=== PATIENT | male | born 1950 | race American Indian/Alaskan Native ===

== ENCOUNTER 2021-05-31 09:24 | Outpatient (CLI) | payer MEDICARE, OTHER ==
--- NOTE | 2021-05-31 10:48 | Cat Scan Report ---
CT ABDOMEN AND PELVIS WITHOUT CONTRAST HISTORY: PROSTATE CANCER COMPARISON: None. TECHNIQUE: Axial CT images were obtained through the abdomen and pelvis without IV contrast. Sagittal and coronal reformatted images. All CT scans at this location are performed using CT dose reduction for ALARA by means of automated exposure control. FINDINGS: CT ABDOMEN: Lung Bases: Clear. Liver: No significant abnormality. Biliary: No significant abnormality. Spleen: No significant abnormality. Unenlarged. Pancreas: No significant abnormality. Adrenals: No significant abnormality. Kidneys: No significant abnormality. Lymphatics: There is a solitary borderline to mildly enlarged left inguinal lymph node measuring 1.1 cm in short axis Vasculature: No significant abnormality. Bowel/Peritoneum: No significant abnormality. No free air. No free fluid. CT PELVIS: : No significant abnormality. Osseous Structures: No significant abnormality. Additional Findings: None IMPRESSION: Solitary mildly enlarged left inguinal lymph node as described above. This may be reactive in nature although metastatic disease is difficult to exclude. No other enlarged lymph nodes. No visceral mass or bone lesion. Signer Name: Lemuel Bullock Jr, MD Signed: 05/31/2021 10:43 AM Workstation Name: [id number]
--- NOTE | 2021-05-31 14:09 | Nuclear Medicine Report ---
NUCLEAR MEDICINE BONE SCAN, WHOLE BODY INDICATION / CLINICAL INFORMATION: C61. Prostate cancer TECHNIQUE: mCi of Tc-99m MDP were injected IV. Images were obtained of the whole body. COMPARISON: CT abdomen pelvis 05/31/2021 FINDINGS: BONES: No osseous lesion or other abnormality. JOINTS: Degenerative activity both knees and ankles. SOFT TISSUES: No significant abnormality. KIDNEYS: No significant abnormality. ADDITIONAL FINDINGS: None. IMPRESSION: 1. No scintigraphic evidence for skeletal metastases Signer Name: Irvin Cabral MD Signed: 05/31/2021 2:05 PM Workstation Name: [id number]
== END 2021-05-31 09:25 | disposition home or self-care (01) ==
LOC: NM 09:24
PROVIDERS: ATTEND Urology
DX: C61 Malignant neoplasm of prostate (principal); M17.0 Bilateral primary osteoarthritis of knee; M19.072 Primary osteoarthritis, left ankle and foot; M19.071 Primary osteoarthritis, right ankle and foot; R59.9 Enlarged lymph nodes, unspecified
CPT/HCPCS: 74176; 78306; A9503

== ENCOUNTER 2021-09-10 05:48 | Observation (INO) | payer MEDICARE, OTHER ==
--- NOTE | 2021-09-04 10:47 | Anesthesia Consultation ---
Anesthesia Consult and Med Hx Date of service: 09/04/21 - Airway Anesthetic Teeth Evaluation: Dentures (upper and lower) ROM Head & Neck: Adequate Mental/Hyoid Distance: Adequate Mallampati Class: Class II Intubation Access Assessment: Probably Good - Pre-Operative Health Status ASA Pre-Surgery Classification: ASA2 Proposed Anesthetic Plan: General Nerve Block: TAP - Pulmonary Hx Smoking: Yes (STOPPED X 30 YRS) COPD: Yes (MILD- INHALER PRN- PT STATES RARE USE) Hx Sleep Apnea: No ([place] PRE SCREEN HIGH RISK) - Cardiovascular System Hx Hypertension: Yes (X 10-15 YRS) Hx Heart Murmur: Yes (CAUSES NO PROBLEMS) - Central Nervous System Hx Psychiatric Problems: No - Hematic Hx Anemia: No - Other Systems Hx Substance Use: Yes (OCC MARIJUANA) Hx Cancer: Yes (prostate)
[2021-09-04 10:52] LABS: Mean Corpuscular HGB Conc 36 % (32-34); Mean Corpuscular Volume 95 fl (84-94); Platelet Count 303 K/mm3 (140-440); Red Blood Count 4.48 M/mm3 (3.65-5.03); Red Cell Distribution Width 12.8 % (13.2-15.2)
[2021-09-04 10:53] LABS: Hematocrit 42.6 % (35.5-45.6); Hemoglobin 15.2 gm/dl (11.8-15.2)
[2021-09-04 11:12] LABS: Alanine Aminotransferase 9 units/L (7-56); Albumin 4.7 g/dL (3.9-5); BUN/Creatinine Ratio 11; Blood Urea Nitrogen 10 mg/dL (9-20); Calcium 9.4 mg/dL (8.4-10.2); Hemolysis Index 11
[2021-09-10] MEDS ORDERED: ACETAMINOPHEN 325 MG TAB PO SCH (06:00)
[2021-09-10] MEDS ORDERED: fentaNYL 100 MCG/2 ML INJ IV SCH (06:00)
[2021-09-10] MEDS ORDERED: LACTATED RINGERS 1,000 ML IV SCH (07:00)
[2021-09-10] MEDS ORDERED: GABAPENTIN 500 MG/10 ML ORAL LIQD PO NR (07:00)
[2021-09-10] MEDS ORDERED: FAMOTIDINE 20 MG/2 ML INJ IV NR (07:00)
[2021-09-10] MEDS ORDERED: BUPIVACAINE/PF (0.5%) 5 MG/1 ML 10 ML VIAL INFILTRATI NR (07:00)
[2021-09-10] MEDS ORDERED: LIDOCAINE (1%) 10 MG/1 ML VIAL 20 ML MDV INFILTRATI NR (07:00)
[2021-09-10] MEDS ORDERED: MIDAZOLAM 2 MG/2 ML INJ IV NR (07:00)
[2021-09-10] MEDS ORDERED: SODIUM CHLORIDE 0.9% P/F 10 ML VIAL INFILTRATI NR (07:00)
[2021-09-10] MEDS ORDERED: CELECOXIB 200 MG CAP PO NR (07:00)
[2021-09-10] MEDS ORDERED: fentaNYL 100 MCG/2 ML INJ IV ONE (07:00)
[2021-09-10] MEDS ORDERED: propofoL 200 MG/20 ML VIAL IV ONE (07:08)
[2021-09-10] MEDS ORDERED: LIDOCAINE MPF (2%) 20 MG/1 ML VIAL 5 ML ONE (07:08)
[2021-09-10] MEDS ORDERED: ROCURONIUM 50 MG/5 ML INJ IV ONE ×2 (07:08→10:45)
[2021-09-10] MEDS ORDERED: KETAMINE/STERILE WATER 50 MG/ML SYRINGE ONE ×2 (07:12→07:48)
[2021-09-10] MEDS ORDERED: ANTICOAGULANT SOD CITRATE SOLUTION MC ONE ×2 (07:14→10:04)
[2021-09-10] MEDS ORDERED: CALCIUM CHLORIDE 1,000 MG/10 ML SYRINGE IV ONE ×2 (07:14→10:05)
[2021-09-10] MEDS ORDERED: METHYLENE BLUE 50 MG/10 ML AMP ONE (07:14)
[2021-09-10] MEDS ORDERED: THROMBIN (RECOMBINANT) 5,000 UNIT VIAL TP ONE ×2 (07:15→10:05)
[2021-09-10] MEDS ORDERED: HYDROmorphone 0.5 MG/0.5 ML INJ IV PRN (07:23)
[2021-09-10] MEDS ORDERED: ONDANSETRON 4 MG/2 ML INJ IV PRN ×2 (07:23→11:00)
--- NOTE | 2021-09-10 07:23 | Anesthesia Day of Surgery ---
Anesthesia Day of Surgery - Day of Surgery Patient Examined: Yes Patient H&P Reviewed: Yes Patient is NPO: Yes
[2021-09-10] MEDS ORDERED: SUGAMMADEX SODIUM 200 MG/2 ML VIAL IV ONE (07:24)
[2021-09-10] MEDS ORDERED: dexAMETHasone 4 MG/ML VIAL ONE (07:26)
[2021-09-10] MEDS ORDERED: BUPIVACAINE/PF (0.25%) 2.5 MG/ML 30 ML VIAL INFILTRATI ONE (07:26)
[2021-09-10] MEDS ORDERED: ceFAZolin/STERILE WATER 2 GM/20 ML SYRINGE IV NR ×2 (07:59)
[2021-09-10] MEDS ORDERED: ceFAZolin/Water 2 GM/20 ML 2 GM/20 ML SYRINGE IV ONE (08:01)
[2021-09-10] MEDS ORDERED: METHYLENE BLUE 50 MG/10 ML AMP IV ONE (10:06)
[2021-09-10] MEDS ORDERED: dexAMETHasone 20 MG/5 ML VIAL ONE (10:45)
[2021-09-10] MEDS ORDERED: KETOROLAC 30 MG/1 ML INJ ONE (10:45)
[2021-09-10] MEDS ORDERED: HYDROmorphone 0.5 MG/0.5 ML INJ ONE (10:46)
--- NOTE | 2021-09-10 10:52 | Short Stay Summary ---
Short Stay Documentation Date of service: 09/10/21 - History H&P: obtained from office - Allergies and Medications Current Medications: Allergies No Known Allergies Allergy (Verified 08/29/21 15:07) Home Medications Medication Instructions Recorded Confirmed Last Taken Type Albuterol Sulfate [Proventil Hfa] 2 puff IH PRN PRN 08/29/21 08/29/21 Unknown History Cholecalciferol Vit D3 [Vitamin D3 1,000 unit PO QDAY 08/29/21 08/29/21 Unknown History 1,000 UNIT TAB] Cyanocobalamin (Vitamin B-12) 2,500 mcg PO DAILY 08/29/21 08/29/21 Unknown History [Vitamin B12] Docosahexanoic Acid [Algal [place]-3 1 tab PO DAILY 08/29/21 08/29/21 Unknown History Dha] Losartan [Cozaar] 50 mg PO QDAY 08/29/21 08/29/21 Unknown History Vit A and D3 in Cod Liver Oil [Cvs 1 each PO DAILY 08/29/21 08/29/21 Unknown History Cod Liver Oil Softgel] amLODIPine [Norvasc] 10 mg PO DAILY 08/29/21 08/29/21 Unknown History Active Medications Acetaminophen (Acetaminophen 325 Mg Tab) 650 mg PO ONCE KATHRYN Stop: 09/10/21 23:59 Celecoxib (Celecoxib 200 Mg Cap) 200 mg PO PREOP NR Stop: 09/10/21 23:59 Famotidine (Famotidine 20 Mg/2 Ml Inj) 20 mg IV PREOP NR Stop: 09/10/21 20:00 Fentanyl (Fentanyl 100 Mcg/2 Ml Inj) 100 mcg IV PREOP KATHRYN Stop: 09/10/21 23:59 Gabapentin (Gabapentin 500 Mg/10 Ml Oral Liqd) 150 mg PO PREOP NR Stop: 09/10/21 23:59 Hydromorphone HCl (Hydromorphone 0.5 Mg/0.5 Ml Inj) 0.25 mg IV Q10MIN PRN PRN Reason: Pain, Moderate (4-6) Stop: 09/10/21 20:00 Hydromorphone HCl (Hydromorphone 0.5 Mg/0.5 Ml Inj) 0.5 mg IV Q10MIN PRN PRN Reason: Pain , Severe (7-10) Stop: 09/10/21 20:00 Lactated Ringer's (Lactated Ringers) 1,000 mls @ 100 mls/hr IV DIRECT KATHRYN Midazolam HCl (Midazolam 2 Mg/2 Ml Inj) 2 mg IV PREOP NR Stop: 09/10/21 23:59 Ondansetron HCl (Ondansetron 4 Mg/2 Ml Inj) 4 mg IV ONCE PRN PRN Reason: Nausea And Vomiting Stop: 09/10/21 11:00 - Brief post op/procedure progress note Date of procedure: 09/10/21 Pre-op diagnosis: prostate cancer Post-op diagnosis: same Procedure: robotic prostatectomy Anesthesia: GETA Surgeon: PEDRO PABLO SANTORO Estimated blood loss: 50-100ml Pathology: list (prostate) Specimen disposition: to lab Condition: stable - Hospital course Hospital course: pt has meds & post op info DRAIN REMOVED URINE CLEAR ABD SOFT HOME TODAY - Disposition Condition at discharge: Stable Short Stay Discharge Plan Follow up with: PRIMARY CARE, [Primary Care Provider] - 7 Days
[2021-09-10] MEDS ORDERED: PHENYLEPHRINE/NS 1,000 MCG/10 ML SYRINGE (OR USE) IV ONE (10:53)
[2021-09-10] MEDS ORDERED: ZOLPIDEM 5 MG TAB PO PRN (11:00)
[2021-09-10] MEDS ORDERED: ACETAMINOPHEN 325 MG TAB PO PRN (11:00)
[2021-09-10] MEDS ORDERED: HYDROcodone/ACETAMINOPHEN 5-325 MG TAB PO PRN (11:00)
[2021-09-10] MEDS ORDERED: NALOXONE 0.4 MG/1 ML INJ IV PRN (11:00)
[2021-09-10] MEDS ORDERED: SODIUM CHLORIDE 0.9% 1000 ML 1,000 ML IV SCH (11:00)
[2021-09-10] MEDS ORDERED: ALBUTEROL 8.5 GM MDI INHALATION IH PRN (11:03)
[2021-09-10] MEDS: HYDROmorphone 0.5 MG/0.5 ML INJ IV PRN ×2 (11:28→11:38)
[2021-09-10] MEDS ORDERED: ALBUTEROL 2.5 MG/3 ML NEBU IH PRN (11:42)
--- NOTE | 2021-09-10 11:57 | Operative Report ---
DATE OF SURGERY: 09/10/2021 PREOPERATIVE DIAGNOSIS: Prostate cancer. PSA 16, El score 7. POSTOPERATIVE DIAGNOSIS: Prostate cancer, PSA 16, [place] score 7. PROCEDURES: Robotic-assisted laparoscopic prostatectomy, bladder neck suspension, stem cell implant. SURGEON: Mansoor Montalvo MD ANESTHESIA: General. GENERATING PLANT SUPERINTENDENT: Larissa Cisneros. ESTIMATED BLOOD LOSS: Minimal. FLUIDS: Crystalloid. COMPLICATIONS: No complications. INDICATIONS: This patient is a 71-year-old gentleman seen in the office for an elevated of a PSA of 11 and repeat was 16. He underwent transrectal ultrasound and biopsies. Prostate was found to have Orem 3+4 adenocarcinoma of the prostate. Bone scan, CT scan negative, presents now for surgical intervention. Risks, benefits, complications were explained. DESCRIPTION OF PROCEDURE: The patient was taken to the operative suite, placed in a supine position. After adequate general anesthesia, he was prepped and draped in sterile fashion, placed in a modified Trendelenburg position. Guzman catheter was placed on the operative field. Larissa Cisneros was present at the bedside to assist for the duration of the procedure. Guzman catheter was placed on the operative field. A 1 cm supraumbilical incision was made. Towel clips were placed. Anterior traction was applied as well as a Veress needle for drop test, which was negative. Opening pressure was 4 cm of water. Insufflation to 15 cm of water was performed without difficulty. A 0-degree lens was placed under direct vision. A 15 cm cephalad to the pubic symphysis was marked 9 cm lateral and additional 9 cm lateral was marked. Under direct vision, 8 mm ports were placed on the left side, 8 mm port was placed on the right as well as a 10 mm and a 5 mm helper ports on the right side as well. Intraabdominally, no signs of metastasis. The second arch was scored exposing the seminal vesicles and vas deferens. Dissection was taken to the apex of the prostate without difficulty. Seminal vesicles were dissected out. Vas deferens was transected. Attention was then taken to the anterior abdominal wall, the lateral umbilical ligament was scored and then across the midline, bladder flap was dropped. Endopelvic fascia was opened bilaterally. Dorsal vein complex was controlled with a 60 mm vascular stapler. Manipulation of the bladder neck was allowed for identification and it was opened anteriorly. Posterior aspect was transected as well, dissecting out a median lobe. Ureteral orifices could be appreciated bilaterally, was uninjured. Seminal vesicles and vas deferens were pulled up anteriorly. Lateral pedicles were controlled with a 60 mm vascular stapler. Dissection was then taken to the apex of the prostate, which was dissected out and placed in EndoCatch bag. Copious irrigation was performed. Adequate hemostasis was achieved. Remnant neurovascular bundle could be appreciated bilaterally. A 3 cm strip of stem cells were placed on each side of the neurovascular bundle. Bladder neck reconstruction was performed at the 5 o'clock and 7 o'clock positions using 2-0 Vicryl in interrupted fashion. Double-armed V-Loc was placed at the 6 o'clock position of the bladder neck, corresponding aspect of the urethra, running stitch was placed. A new Guzman was placed into the bladder, irrigated few clots and then cleared. Bladder neck anastomosis was cinched down and no leak. Bladder neck suspension was then performed placing the double-armed V-Loc in the posterior aspect of the pubic rami bilaterally. [place] were removed. Platelet rich plasma and platelet poor plasma was injected around the urethra as well as a platelet membrane. Js-Weldon drain was brought out through the left-sided robotic port, secured with a 2-0 silk. The patient was placed in a supine position. Robotic cart was undocked. The supraumbilical incision was extended to allow removal of the prostate. Rectus fascia was then closed with 0 Vicryl in a [id number] fashion. Skin was closed with a 3-0 Monocryl. Guzman catheter sideport was folded over and tied with 0 silk in interrupted fashion. The patient tolerated the procedure well and was extubated and taken to recovery room. He will be observed overnight and go home on Bactrim and Truchas. TID: [id number] RECEIPT: [id number] [facility]/FAY
--- NOTE | 2021-09-10 14:09 | Post Anesthesia Evaluation ---
- Post Anesthesia Evaluation Patient Participated: Yes Airway Patent: Yes Stable Respiratory Function: Yes Nausea/Vomiting: No Temp > 96.8F: Yes Pain Manageable: Yes Adequeate Hydration: Yes Anesthesia Complications: No Block Receding Appropriately: Yes Patient on Ventilator: No
[2021-09-10] MEDS: ceFAZolin/NS 1 GM/50 ML 1 GM/50 ML BAG IV SCH (15:47)
--- NOTE | 2021-09-10 20:31 | Consultation ---
History of Present Illness - Reason for Consult Consult date: 09/10/21 medical management Requesting physician: PEDRO PABLO SANTORO - History of Present Illness /p Robotic assisted laparoscopic prostatectomy, bladder neck suspension, stem cell implant. Postop patient is doing well no shortness of breath no chest pain Past History Past Medical History: hypertension, other (Asthma vitamin D deficiency) Past Surgical History: Other (Robotic prostatectomy) Social history: lives with family, full code Family history: hypertension Medications and Allergies Allergies Allergy/AdvReac Type Severity Reaction Status Date / Time No Known Allergies Allergy Verified 08/29/21 15:07 Home Medications Medication Instructions Recorded Confirmed Last Taken Type Albuterol Sulfate [Proventil Hfa] 2 puff IH PRN PRN 08/29/21 08/29/21 Unknown History Cholecalciferol Vit D3 [Vitamin D3 1,000 unit PO QDAY 08/29/21 09/10/21 09/09/21 09:00 History 1,000 UNIT TAB] Cyanocobalamin (Vitamin B-12) 2,500 mcg PO DAILY 08/29/21 09/10/21 09/09/21 09:00 History [Vitamin B12] Docosahexanoic Acid [Algal [place]-3 1 tab PO DAILY 08/29/21 09/10/21 09/09/21 09:00 History Dha] Losartan [Cozaar] 50 mg PO QDAY 08/29/21 09/10/21 09/09/21 09:00 History Vit A and D3 in Cod Liver Oil [Cvs 1 each PO DAILY 08/29/21 09/10/21 09/09/21 09:00 History Cod Liver Oil Softgel] amLODIPine [Norvasc] 10 mg PO DAILY 08/29/21 09/10/21 09/10/21 05:00 History Active Meds: Active Medications Acetaminophen (Acetaminophen 325 Mg Tab) 650 mg PO ONCE KATHRYN Stop: 09/10/21 23:59 Last Admin: 09/10/21 06:50 Dose: 650 mg Acetaminophen (Acetaminophen 325 Mg Tab) 650 mg PO Q4H PRN PRN Reason: Pain, Mild (1-3)/Fever > 100.5 Hydrocodone Bitart/Acetaminophen (Hydrocodone/Acetaminophen 5-325 Mg Tab) 2 each PO Q4H PRN PRN Reason: Pain, Moderate (4-6) Albuterol (Albuterol 2.5 Mg/3 Ml Nebu) 2.5 mg IH Q4HRT PRN PRN Reason: Shortness Of Breath Cefazolin Sodium (Cefazolin/Sterile Water 2 Gm/20 Ml Syringe) 2 gm IV PREOP NR Stop: 09/10/21 23:00 Celecoxib (Celecoxib 200 Mg Cap) 200 mg PO PREOP NR Stop: 09/10/21 23:59 Last Admin: 09/10/21 06:50 Dose: 200 mg Fentanyl (Fentanyl 100 Mcg/2 Ml Inj) 100 mcg IV PREOP KATHRYN Stop: 09/10/21 23:59 Last Admin: 09/10/21 07:33 Dose: 100 mcg Gabapentin (Gabapentin 500 Mg/10 Ml Oral Liqd) 150 mg PO PREOP NR Stop: 09/10/21 23:59 Last Admin: 09/10/21 10:56 Dose: 150 mg Lactated Ringer's (Lactated Ringers) 1,000 mls @ 100 mls/hr IV DIRECT KATHRYN Last Admin: 09/10/21 06:50 Dose: 100 mls/hr Sodium Chloride (Nacl 0.9% 1000 Ml) 1,000 mls @ 100 mls/hr IV DIRECT KATHRYN Cefazolin Sodium (Ancef/Ns 1 Gm/50 Ml) 1 gm in 50 mls @ 100 mls/hr IV Q8H KATHRYN; Protocol Stop: 09/11/21 00:29 Last Admin: 09/10/21 15:47 Dose: 100 mls/hr Losartan Potassium (Losartan 50 Mg Tab) 50 mg PO QDAY KATHRYN Midazolam HCl (Midazolam 2 Mg/2 Ml Inj) 2 mg IV PREOP NR Stop: 09/10/21 23:59 Last Admin: 09/10/21 07:33 Dose: 2 mg Morphine Sulfate (Morphine 4 Mg/1 Ml Inj) 4 mg IV Q4H PRN PRN Reason: Pain , Severe (7-10) Naloxone HCl (Naloxone 0.4 Mg/1 Ml Inj) 0.1 mg IV Q2MIN PRN PRN Reason: Res Rate </= 8 or 02 SAT < 92% Ondansetron HCl (Ondansetron 4 Mg/2 Ml Inj) 4 mg IV Q8H PRN PRN Reason: Nausea And Vomiting Zolpidem Tartrate (Zolpidem 5 Mg Tab) 5 mg PO QHS PRN PRN Reason: Sleep Review of Systems All systems: negative Exam - Constitutional Vitals: Temp Pulse Resp BP Pulse Ox 98.2 F 78 15 114/62 97 09/10/21 18:35 09/10/21 18:35 09/10/21 18:35 09/10/21 18:35 09/10/21 18:35 General appearance: Present: no acute distress, well-nourished - EENT Eyes: Present: PERRL ENT: hearing intact, clear oral mucosa - Neck Neck: Present: supple, normal ROM - Respiratory Respiratory effort: normal Respiratory: bilateral: CTA - Cardiovascular Heart rate: 78 Rhythm: regular Heart Sounds: Present: S1 & S2. Absent: rub, click - Extremities Extremities: pulses symmetrical, No edema Peripheral Pulses: within normal limits - Abdominal General gastrointestinal: Present: soft, non-tender, non-distended, normal bowel sounds Male genitourinary: Present: normal - Rectal Rectal Exam: deferred - Integumentary Integumentary: Present: clear, warm, dry - Musculoskeletal Musculoskeletal: gait normal, strength equal bilaterally - Psychiatric Psychiatric: appropriate mood/affect, intact judgment & insight - Neurologic Neurologic: CNII-XII intact, moves all extremities - Allied Health Allied health notes reviewed: nursing, case management HEART Score - HEART Score History: Slightly suspicious Age: > 65 Risk factors: 1-2 risk factors Troponin: < normal limit - Critical Actions Critical Actions: 0-3 pts:0.9-1.7%risk of adverse cardiac event.Candidate for discharge Results - Labs CBC & Chem 7: 09/04/21 00:01 09/04/21 00:01 Assessment and Plan - Patient Problems (1) S/P prostatectomy Current Visit: Yes Status: Acute Plan to address problem: S/p robotic prostatectomy Postop patient doing well Bladder neck suspension (2) HTN (hypertension) Current Visit: Yes Status: Chronic Qualifiers: Hypertension type: primary hypertension Qualified Code(s): I10 - Essential (primary) hypertension Plan to address problem: Continue antihypertensives and adjust medications as necessary (3) Vitamin D deficiency Current Visit: Yes Status: Chronic Plan to address problem: Continue vitamin D supplements (4) DVT prophylaxis Current Visit: Yes Status: Acute Plan to address problem: On SCDs and GI prophylaxis (5) Advance care planning Current Visit: Yes Status: Acute Plan to address problem: Disease education conducted care plan discussed diagnosis discussed, prognosis discussed, patient is full code. Patient acknowledges understanding and agreement with care plan. +30 minutes.
[2021-09-10 20:40] VITALS: BP 112/62
[2021-09-10] MEDS: CHOLECALCIFEROL (VIT D3) 1000 UNIT (25 mcg) TAB PO SCH (22:12)
[2021-09-10] MEDS: amLODIPine 10 MG TAB PO SCH (22:12)
[2021-09-10] MEDS: MORPHINE 4 MG/1 ML INJ IV PRN (22:13)
[2021-09-11] MEDS: ceFAZolin/NS 1 GM/50 ML 1 GM/50 ML BAG IV SCH (01:44)
[2021-09-11] MEDS: MORPHINE 4 MG/1 ML INJ IV PRN (07:56)
--- NOTE | 2021-09-11 08:47 | Post Anesthesia Evaluation ---
- Post Anesthesia Evaluation Patient Participated: Yes Airway Patent: Yes Stable Respiratory Function: Yes Nausea/Vomiting: No Temp > 96.8F: Yes Pain Manageable: Yes Adequeate Hydration: Yes Anesthesia Complications: No Block Receding Appropriately: Not Applicable Patient on Ventilator: No
[2021-09-11] MEDS: CHOLECALCIFEROL (VIT D3) 1000 UNIT (25 mcg) TAB PO SCH (09:54)
[2021-09-11] MEDS: amLODIPine 10 MG TAB PO SCH (09:54)
[2021-09-11] MEDS ORDERED: LOSARTAN 50 MG TAB PO SCH (10:00)
== END 2021-09-11 11:49 | disposition home or self-care (01) ==
LOC: OR 05:48 → EDSTATUS 08:00 → 3A 11:00
PROVIDERS: ADMIT Urology; ATTEND Urology
DX: C61 Malignant neoplasm of prostate (principal); Z20.822 Contact with and (suspected) exposure to COVID-19; I10 Essential (primary) hypertension; J45.909 Unspecified asthma, uncomplicated; E55.9 Vitamin D deficiency, unspecified; Z79.899 Other long term (current) drug therapy; Z98.890 Other specified postprocedural states
CPT/HCPCS: 36415; 55866; 64488; 80053; 85027; 86850; 86900; 86901; 88309; 94760; 96365; 96375; 96376; G0378; J0690; J1100; J1170; J1885; J2250; J2270; J2370; J2704; J3010; J3490; J7030; J7120; Q4140; Q9968; U0003; 64450; G0379